=== PATIENT | male | born 1955 | race Two or more races ===

== ENCOUNTER → 2024-07-03 | Outpatient (CLI) | payer MEDICARE, MEDICAID ==
[~2024-07-03] MED LIST: LIDOCAINE 2%HCL (LOCAL ANESTH.) INJ 10ml MDV ONE; MIDAZOLAM HCL 2MG/2ML 2ml VIAL (1mg/ml) IV ONE; MIDAZOLAM HCL 2MG/2ML 2ml VIAL (1mg/ml) ONE; fentaNYL CITRATE 100 MCG/2 ML VL IV ONE; fentaNYL CITRATE 100 MCG/2 ML VL ONE
[2024-07-03 09:23] VITALS: BP 159/86; PULSE 96; RESP 14; TEMP 98; O2SAT 95
--- NOTE | 2024-07-03 09:35 | DVH ---
EXAM: XY CHEST PORTABLE Indication: POST LUNG BX IMMEDIATE Technique: Single frontal view of the chest was obtained Comparison: 07/03/2024 FINDINGS: Lines and Tubes: None Lungs: A 4.7 cm consolidative opacity in the left upper lung. Pleura: No effusion. No pneumothorax. Cardiomediastinal contours: Unremarkable Bones: No acute osseous abnormality. IMPRESSION: Consolidative/masslike opacity in the left upper lung. No evidence of pneumothorax status post lung biopsy.
--- NOTE | 2024-07-03 09:52 | DVH ---
CT CHEST WITHOUT CONTRAST, HISTORY: PROSTATE CANCER PROCEDURE: Informed consent was obtained. The patient was placed supine on the CT scanner. A limited localization CT scan of the lung was obtained. The skin overlying the lesion was prepped with chlorhe xidine which was allowed to dry and draped in sterile fashion. Time out was performed. The skin and s oft tissues were infiltrated with Xylocaine, and . With intermittent CT guidance, a [address] coaxial guiding needle was advanced into the left lung nodule. The needle position was confirmed with CT scan. 1 core biopsies were obtained using Temno inner 20 gauge biopsy needle. The specimens w ere sent in formalin to pathology for analysis. A visceral blood patch was applied as the needle was withdrawn the needle was withdrawn, and post procedural CT obtained through the biopsy region. Small pneumothorax was noted, and patient was transport to recovery in stable condition without respirato ry distress DLP = 1665 mGy-cm. FINDINGS: Limited CT scan demonstrates an soft tissue nodule in the left upper lobe perihilar region and the biopsy needle within the margin of the lung mass. A small post biopsy hemorrhage or pneumoth orax is noted. IMPRESSION/PLAN: CT guided lung biopsy. Pathology pending. Iatrogenic pneumothorax small and asymptomatic ; will follo w up CXRs. Bedrest until cleared by IR following post-biopsy CXRs.
[2024-07-03 09:53] VITALS: BP 139/83; PULSE 91; RESP 12; O2SAT 97
[2024-07-03 10:23] VITALS: BP 126/74; PULSE 86; RESP 16; O2SAT 97
[2024-07-03 10:53] VITALS: BP 133/70; PULSE 80; RESP 12; O2SAT 97
--- NOTE | 2024-07-03 11:18 | DVH ---
XY CHEST PORTABLE, HISTORY: POST LUNG BX 2 HOUR COMPARISON: XY CHEST PORTABLE on DOS: 07/03/24 XY CHEST PORTABLE on DOS: 07/03/24 TECHNICAL DATA: 1 view of the chest was obtained. FINDINGS: Lines and tubes: None Cardiomediastinal silhouette: normal Pulmonary vasculature: normal Lung expansion: normal Lung airspace: Similar left mid lung zone consolidation. Lung interstitium: normal Pleura: normal Pneumothorax: no Bones: Unremarkable Other: no IMPRESSION: No pneumothorax is seen.
== END | disposition home or self-care (01) ==
LOC: XYW 08:19
PROVIDERS: ATTEND Internal Medicine Medical Oncology
DX: R91.1 Solitary pulmonary nodule (principal); R91.8 Other nonspecific abnormal finding of lung field; J95.811 Postprocedural pneumothorax; C61 Malignant neoplasm of prostate; J44.9 Chronic obstructive pulmonary disease, unspecified; F17.200 Nicotine dependence, unspecified, uncomplicated; Z98.890 Other specified postprocedural states; Z79.899 Other long term (current) drug therapy
CPT/HCPCS: 32408; 71045; 71250; 77012; J2003; J2250; J3010; 10005